=== PATIENT | female | born 1970 | race Two or more races ===

== ENCOUNTER 2019-06-13 11:24 | Inpatient (IN) | payer OTHER ==
[~2019-06-13] VITALS: Ht 167.6 cm; Wt 83.0 kg
[2019-06-13 11:52] LABS: CLARITY,URINE SLIGHTLY CLOUDY (Clear); COLOR,URINE YELLOW (Yellow); GLUCOSE, URINE >=1000 mg/dl (Neg); KETONES,URINE 15 mg/dl (Neg); LEUKOCYTE ESTERASE ,URINE NEGATIVE (Neg); NITRITES, URINE NEGATIVE (Neg); OCCULT BLOOD,URINE NEGATIVE (Neg); PH,URINE 5.5 (4.8-8.0); PROTEIN,URINE NEGATIVE (Neg); UROBILINOGEN,URINE 0.2 E.U/dL (0.2-1.0)
[2019-06-13 11:56] LABS: UA COLLECTION TYPE CLN CATCH MIDSTREAM
[2019-06-13 12:03] LABS: SQUAMOUS EPITHELIAL CELL,UR MODERATE /LPF (FEW)
[2019-06-13 12:04] LABS: BACTERIA,URINE FEW /HPF (Neg)
[2019-06-13 12:05] LABS: RBC,URINE 0-2 /HPF (0-2); WBC,URINE 0-4 /HPF (0-4)
[2019-06-13 12:06] LABS: YEAST FEW /HPF (NEGATIVE)
[2019-06-13] MEDS ORDERED: morphine 4 MG/ML inj SYRINge IV ONE ×2 (12:25→14:15)
[2019-06-13] MEDS ORDERED: normal saline 1000ml 1,000 ML IV ONE ×3 (12:25→14:20)
[2019-06-13] MEDS ORDERED: ondansetron/PF 4mg/2ml inj IV ONE (12:25)
[2019-06-13 12:32] LABS: BASOPHILS % (AUTO) 0.3 % (0-1); EOSINOPHILS % (AUTO) 0.1 % (0-6); HEMATOCRIT 39.6 % (35.0-45.0); HEMOGLOBIN 13.2 g/dl (12.0-16.0); LYMPHOCYTES # (AUTO) 1.7 X10'3 (1.1-4.8); MEAN CORPUSCULAR HGB CONC 33.4 g/dL (33.0-36.5); MEAN CORPUSCULAR VOLUME 80.8 FL (78-98); MEAN PLATELET VOLUME 7.9 FL (7.4-10.4); MONOCYTES # (AUTO) 0.6 X10'3 (0-0.9); MONOCYTES % (AUTO) 4.6 % (2-12); NEUTROPHILS # (AUTO) 10.6 X10'3 (1.8-7.7); PLATELET COUNT 254 X10'3 (140-440); RED CELL DISTRIBUTION WIDTH 14.2 % (11.5-14.5); WHITE BLOOD COUNT 12.9 X10'3 (4.5-11.0)
--- NOTE | 2019-06-13 12:44 | NUR ---
PT TO CT
[2019-06-13 12:47] LABS: ALANINE AMINOTRANSFERASE 40 U/L (12-78); ALBUMIN 3.8 G/DL (3.4-5.0); ALBUMIN/GLOBULIN RATIO 0.9 (1.1-1.5); ALKALINE PHOSPHATASE 143 IU/L (46-116); ANION GAP 11 (8-16); ASPARTATE AMINO TRANSFERASE 22 U/L (10-37); BILIRUBIN,TOTAL 0.5 MG/DL (0.1-1.0); BLOOD UREA NITROGEN 8 MG/DL (7-18); BUN/CREATININE RATIO 12.7 (6.6-38.0); CALCIUM 8.9 MG/DL (8.5-10.1); CHLORIDE 99 MMOL/L (99-107); CREATININE 0.63 MG/DL (0.40-0.90); GLUCOSE 383 MG/DL (70-104); LIPASE 171 U/L (73-393); SODIUM 135 MMOL/L (135-145); TOTAL CARBON DIOXIDE 24.8 MMOL/L (24-32); eGFR > 90 ML/MIN
[2019-06-13] MEDS ORDERED: insulin regular, human 10 units/0.1 ml syringe IV ONE (12:50)
[2019-06-13 13:48] LABS: URINE AMPHETAMINE SCREEN NEGATIVE (Neg); URINE BARBITUATE SCREEN NEGATIVE (Neg); URINE BENZODIAZEPINES SCREEN NEGATIVE (Neg); URINE CANNABINOID SCREEN NEGATIVE (Neg); URINE COCAINE SCREEN NEGATIVE (Neg); URINE METHADONE SCREEN NEGATIVE (Neg); URINE OPIATE SCREEN NEGATIVE (Neg); URINE PHENCYCLIDINE SCREEN NEGATIVE (Neg)
[2019-06-13] MEDS ORDERED: piperacillin/tazo 4.5gm/100ml 100 ML IV ONE (13:50)
--- NOTE | 2019-06-13 14:02 | NUR ---
BG 228
[2019-06-13] MEDS ORDERED: HYDROcodone/acetaminophen 5mg/325mg tablet PO ONE (14:20)
[2019-06-13] MEDS ORDERED: INSU100I31 SQ (14:26)
[2019-06-13] MEDS ORDERED: METF-436 PO (14:26)
[2019-06-13] MEDS ORDERED: LISI-604 PO (14:26)
[2019-06-13] MEDS ORDERED: diphenhydrAMINE 25mg capsule PO PRN (14:40)
[2019-06-13] MEDS ORDERED: magnesium hydroxide 30ml (MOM) UD suspension PO PRN (14:40)
[2019-06-13] MEDS ORDERED: metoclopramide 5 mg/ml inj IV PRN (14:40)
[2019-06-13] MEDS ORDERED: dextrose 50%-water 50ml dispensing syringe IV PRN ×2 (14:40)
[2019-06-13] MEDS ORDERED: glucagon, human recombinant 1mg kit SUBCUT PRN (14:40)
[2019-06-13] MEDS ORDERED: diphenhydrAMINE 50 mg/ml inj IV PRN (14:40)
[2019-06-13] MEDS ORDERED: HYDROcodone/acetaminophen 10/325mg tab PO PRN (14:40)
[2019-06-13] MEDS ORDERED: mag hydrox/Alum hydrox/simeth 30ml oral suspension PO PRN (14:40)
[2019-06-13] MEDS ORDERED: magnesium Cl slow-release 64mg tablet PO PRN (14:40)
[2019-06-13] MEDS ORDERED: acetaminophen 325mg tablet PO PRN (14:40)
[2019-06-13] MEDS: K and/or MAG REPLACEMENT MC SCH (14:40)
[2019-06-13] MEDS ORDERED: acetaminophen 650mg rectal suppository RC PRN (14:40)
[2019-06-13] MEDS ORDERED: potassium Cl 20 mEq SR tablet PO PRN (14:40)
[2019-06-13] MEDS: normal saline 1000ml 1,000 ML IV SCH (14:40)
[2019-06-13] MEDS ORDERED: morphine 2 MG/ML inj. syringe IV PRN ×2 (14:40)
[2019-06-13] MEDS ORDERED: potassium CL 10mEq/100ml bag 100 ML IV PRN ×2 (14:40)
[2019-06-13] MEDS ORDERED: MESSAGE TO PHARMACY PO ONE (14:40)
[2019-06-13] MEDS ORDERED: magnesium 4gm in 100ml NS 100 ML IV PRN (14:40)
[2019-06-13] MEDS ORDERED: magnesium 2GM in 50ml NS 50 ML IV PRN (14:40)
[2019-06-13] MEDS ORDERED: dextrose ORAL solution 15 GM/59 ML bottle PO PRN ×2 (14:40)
[2019-06-13] MEDS ORDERED: bisacodyl 10mg suppository rectal RC PRN (14:40)
[2019-06-13] MEDS ORDERED: METF500T20 PO (14:44)
[2019-06-13] MEDS ORDERED: ATOR20TA66 PO (14:48)
[2019-06-13 15:07] LABS: HEMOGLOBIN A1C 11.5 % (4.5-6.2)
--- NOTE | 2019-06-13 15:24 | NUR ---
Patient in room ED 7. I have received report from VELASQUEZ Maher and had the opportunity to ask questions and assume patient care.
--- NOTE | 2019-06-13 15:50 | NUR ---
Pt arrived on surgical floor and settled in room 350B, at bedside. Bed low and locked, call light within reach.
[2019-06-13 15:56] VITALS: BP 114/73
[2019-06-13] MEDS ORDERED: piperacillin/tazo 3.375gm/50ml 50 ML IV SCH (16:00)
--- NOTE | 2019-06-13 16:09 | NUR ---
Pt has temp of 102.1. Dr Lira notified, no new orders received at this time. Will administer Tylenol and continue to monitor.
--- NOTE | 2019-06-13 16:40 | NUR ---
2 [place] 10/325's administered per orders. Will reassess temp in 1 hour.
--- NOTE | 2019-06-13 17:40 | NUR ---
Temp 98.7
[2019-06-13 18:00] VITALS: BP 147/80
--- NOTE | 2019-06-13 18:14 | NUR ---
Problems reprioritized. Patient report given, questions answered & plan of care reviewed with VELASQUEZ Bedoya.
[2019-06-13] MEDS: insulin Lispro (HumaLOG) vial - multi-dose SQ SCH (19:03)
[2019-06-13] MEDS: insulin glargine (Lantus) pen - multi-dose SQ SCH (21:00)
[2019-06-13] MEDS ORDERED: temazepam 15mg capsule PO PRN (21:00)
[2019-06-13] MEDS: heparin, porcine 5000 units/ml vial SQ SCH (21:59)
[2019-06-13] MEDS: diatr meglu/diatrizoate 30ml oral sol.-(3 dose) bottle PO SCH (22:02)
[2019-06-14] VITALS (15 sets, daily range): BP systolic 105–135; BP diastolic 51–77
[2019-06-14] MEDS: piperacillin/tazo 3.375gm/50ml 50 ML IV SCH ×4 (00:12→23:20)
[2019-06-14] MEDS: HYDROcodone/acetaminophen 5mg/325mg tablet PO PRN ×2 (00:25→07:38)
[2019-06-14] MEDS: normal saline 1000ml 1,000 ML IV SCH ×3 (00:40→22:00)
[2019-06-14] MEDS: ondansetron/PF 4mg/2ml inj IV PRN ×2 (01:25→22:10)
[2019-06-14 05:27] LABS: BASOPHILS % (AUTO) 0.1 % (0-1); EOSINOPHILS % (AUTO) 0.1 % (0-6); HEMATOCRIT 33.9 % (35.0-45.0); HEMOGLOBIN 11.1 g/dl (12.0-16.0); LYMPHOCYTES # (AUTO) 1.6 X10'3 (1.1-4.8); LYMPHOCYTES % (AUTO) 11.5 % (21-51); MEAN CORPUSCULAR HEMOGLOBIN 26.9 PG (27.0-31.0); MEAN CORPUSCULAR HGB CONC 32.8 g/dL (33.0-36.5); MEAN PLATELET VOLUME 8.2 FL (7.4-10.4); MONOCYTES # (AUTO) 0.7 X10'3 (0-0.9); MONOCYTES % (AUTO) 5.1 % (2-12); NEUTROPHILS # (AUTO) 11.5 X10'3 (1.8-7.7); NEUTROPHILS % (AUTO) 83.2 % (42-75); PLATELET COUNT 204 X10'3 (140-440); RED BLOOD COUNT 4.14 X10'6 (4.20-5.60); RED CELL DISTRIBUTION WIDTH 14.5 % (11.5-14.5); WHITE BLOOD COUNT 13.8 X10'3 (4.5-11.0)
[2019-06-14 05:40] LABS: ALANINE AMINOTRANSFERASE 28 U/L (12-78); ALBUMIN 2.7 G/DL (3.4-5.0); ALBUMIN/GLOBULIN RATIO 0.7 (1.1-1.5); ALKALINE PHOSPHATASE 91 IU/L (46-116); ANION GAP 10 (8-16); ASPARTATE AMINO TRANSFERASE 15 U/L (10-37); BILIRUBIN,TOTAL 0.8 MG/DL (0.1-1.0); BLOOD UREA NITROGEN 6 MG/DL (7-18); BUN/CREATININE RATIO 10.9 (6.6-38.0); CHLORIDE 102 MMOL/L (99-107); CREATININE 0.55 MG/DL (0.40-0.90); GLUCOSE 273 MG/DL (70-104); MAGNESIUM 1.4 MG/DL (1.5-2.4); PHOSPHORUS 2.6 MG/DL (2.3-4.5); POTASSIUM 3.6 MMOL/L (3.5-5.1); SODIUM 135 MMOL/L (135-145); TOTAL CARBON DIOXIDE 23.3 MMOL/L (24-32); TOTAL PROTEIN 6.4 G/DL (6.4-8.2); eGFR > 90 ML/MIN
--- NOTE | 2019-06-14 06:31 | NUR ---
report given to VELASQUEZ Jimenez
[2019-06-14] MEDS: diatr meglu/diatrizoate 30ml oral sol.-(3 dose) bottle PO SCH ×2 (07:37→09:15)
[2019-06-14] MEDS: atorvastatin 20mg tablet PO SCH (07:39)
[2019-06-14] MEDS: K and/or MAG REPLACEMENT MC SCH (08:00)
[2019-06-14] MEDS: heparin, porcine 5000 units/ml vial SQ SCH ×2 (08:00→20:03)
[2019-06-14] MEDS ORDERED: BUPIVAcaine/PF 2.5 mg/ml (0.25%) 30ml vial ONE ×2 (09:13→14:53)
[2019-06-14] MEDS ORDERED: LIDOcaine 1% 30ml preserv. free vial ONE ×2 (09:13→14:53)
[2019-06-14] MEDS ORDERED: iohexol 300mg/ml 100ml inj. ONE (09:23)
[2019-06-14] MEDS ORDERED: pneumococcal 23-VAL P-sac vacc 25 mcg/0.5ml vial IMVAC ONE (10:00)
[2019-06-14] MEDS ORDERED: morphine 4 MG/ML inj SYRINge IV PRN ×2 (11:25)
[2019-06-14] MEDS ORDERED: ondansetron/PF 4mg/2ml inj IV PRN (11:25)
[2019-06-14] MEDS ORDERED: proCHLORperazine 10 MG/2 ml inj IV PRN (11:25)
[2019-06-14] MEDS ORDERED: ringers solution, lacted 1,000 ML IV SCH (11:25)
[2019-06-14] MEDS ORDERED: meperidine/PF 25mg/ml syringe IV PRN ×3 (11:25)
--- NOTE | 2019-06-14 13:23 | NUR ---
Pt with A1c 11.5 seen at bedside with family present. Pt with conflicting information, states she follows a DM diet by monitoring her CHO intake but then states she doesn't follow any diet. Pt then reports doing the Keto diet previously which she stopped in February. 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 No past A1c lab draws to confirm A1c hx. Pt reports she will periodically check her BG levels however she sometimes has a CGM but she hasn't been using it because it doesn't last the full two weeks that it's supposed to. Pt initially reports that she takes her Metformin per rx but then says that she doesn't always take it because it causes her to have diarrhea. D/w MD pt reports of adverse reactions to Metformin. Pt reports she sees an MD q 6 months at [facility]. Pt provided with written and verbal DM education with referral to outpatient DM class and RD contact information. RD encouraged pt to consider having consistent CHO intake in moderation and to check her BG levels more frequently to better manage DM. RD also encouraged pt to further express her concerns with Metformin and CGM with her MD in order to optimize DM management. Pt endorses a good appetite and denies food allergies or difficulty chewing/swallowing. Pt reports diarrhea secondary to medications at this time. Will continue to follow. Addendum: 06/14/19 at [address] Amended: Links added.
--- NOTE | 2019-06-14 14:05 | NUR ---
GAVE REPORT TO SUZE IN OR
[2019-06-14] MEDS ORDERED: sevoflurane 250ml liquid IH ONE (15:19)
[2019-06-14] MEDS ORDERED: rocuronium 10mg/ml inj IV ONE (15:19)
[2019-06-14] MEDS ORDERED: fentaNYL/PF 50MCG/1 ML 2ML syringe ONE (15:23)
[2019-06-14] MEDS ORDERED: midazolam 2 mg/2 ml injection ONE (15:23)
[2019-06-14] MEDS ORDERED: LIDOcaine 1%/PF 5ML 10 MG/ML VIAL ONE (15:24)
[2019-06-14] MEDS ORDERED: propofol inj 20 ML IV ONE (15:24)
[2019-06-14] MEDS ORDERED: dexamethasone sod phosphate 4mg/ml inj. ONE (15:35)
[2019-06-14] MEDS ORDERED: ondansetron/PF 4mg/2ml inj ONE (15:36)
[2019-06-14] MEDS ORDERED: acetaminophen 1,000mg/100ml IV 100 ML IV ONE (16:21)
[2019-06-14] MEDS ORDERED: neostigmine methylsulfate 1 MG/ML 10ml vial ONE (16:34)
[2019-06-14] MEDS ORDERED: glycopyrrolate 0.2mg/ml inj ONE (16:34)
[2019-06-14] MEDS ORDERED: CADD PCA waste documentation MC PRN (16:40)
[2019-06-14] MEDS ORDERED: naloxone 0.4 mg/ml inj IV PRN (16:40)
[2019-06-14] MEDS ORDERED: HYDROmorphone/NS 1 mg/ml CADD 50 ML IV SCH (16:40)
[2019-06-14] MEDS ORDERED: insulin regular, human 10 units/0.1 ml syringe ONE (16:48)
--- NOTE | 2019-06-14 16:50 | NUR ---
Received from OR via BED, accompanied by Anesthesiologist GREG and report given by Anesthesiolgist. PT SLEEPY, OXYGENATING WELL ON 10 LPM O2 VIA MASK, NO RESP DISTRESS NOTED. DENIES NAUSEA OR PAIN AT THIS TIME. LARGE BANDAIDS COVERING TROCAR SITES, CDI. JOSE DRAIN TO LOWER ABD WITH DARK OUTPUT. SCDS ON, VSS.
--- NOTE | 2019-06-14 17:00 | NUR ---
GOT REPRY Addendum: 06/14/19 at 1932 by Barbara Pierson RN GOT REPORT FROM GABRIELLA IN RECOVERY
--- NOTE | 2019-06-14 17:25 | NUR ---
Report called to receiving nurse. Transferred via BED Belongings IN PT ROOM. VSS, PT DENIES PAIN DURING PACU STAY. TRANSFERRED TO SURGICAL IN STABLE CONDITION. Special Issues communicated to receiving nurse.
[2019-06-14] MEDS: HYDROmorphone/NS 1 mg/ml CADD 50 ML IV SCH ×3 (18:37→23:00)
--- NOTE | 2019-06-14 18:45 | NUR ---
SHIFT CHANGE REPORT Problems reprioritized. Patient report given, questions answered & plan of care reviewed with VELASQUEZ WORTHY.
[2019-06-14] MEDS: lactobacillus rhamnosus 10,000 MMU CELLS/CAPSULE PO SCH (20:02)
--- NOTE | 2019-06-14 22:00 | NUR ---
PT AMBULATED 300'
[2019-06-14] MEDS: insulin glargine (Lantus) pen - multi-dose SQ SCH (23:17)
[2019-06-15] VITALS: BP 109/51
[2019-06-15] MEDS: HYDROmorphone/NS 1 mg/ml CADD 50 ML IV SCH ×6 (01:00→11:00)
--- NOTE | 2019-06-15 04:59 | NUR ---
PT AMBULATED 600'
--- NOTE | 2019-06-15 06:11 | NUR ---
SHIFT CHANGE NOTE: Patient in room [facility] 350. I have received report from VELASQUEZ WORTHY and had the opportunity to ask questions and assume patient care.
--- NOTE | 2019-06-15 06:22 | NUR ---
report given to VELASQUEZ Jimenez
[2019-06-15 06:32] LABS: BASOPHILS % (AUTO) 0.2 % (0-1); EOSINOPHILS % (AUTO) 0 % (0-6); HEMATOCRIT 33.9 % (35.0-45.0); LYMPHOCYTES # (AUTO) 1.1 X10'3 (1.1-4.8); LYMPHOCYTES % (AUTO) 7.4 % (21-51); MEAN CORPUSCULAR HEMOGLOBIN 26.6 PG (27.0-31.0); MEAN CORPUSCULAR HGB CONC 32.5 g/dL (33.0-36.5); MEAN PLATELET VOLUME 8.8 FL (7.4-10.4); MONOCYTES # (AUTO) 0.7 X10'3 (0-0.9); MONOCYTES % (AUTO) 4.6 % (2-12); NEUTROPHILS # (AUTO) 12.8 X10'3 (1.8-7.7); NEUTROPHILS % (AUTO) 87.8 % (42-75); PLATELET COUNT 212 X10'3 (140-440); RED BLOOD COUNT 4.14 X10'6 (4.20-5.60); RED CELL DISTRIBUTION WIDTH 14.9 % (11.5-14.5); WHITE BLOOD COUNT 14.5 X10'3 (4.5-11.0)
[2019-06-15 06:34] LABS: ALANINE AMINOTRANSFERASE 29 U/L (12-78); ALBUMIN 2.3 G/DL (3.4-5.0); ALBUMIN/GLOBULIN RATIO 0.5 (1.1-1.5); ALKALINE PHOSPHATASE 97 IU/L (46-116); ANION GAP 16 (8-16); ASPARTATE AMINO TRANSFERASE 22 U/L (10-37); BILIRUBIN,TOTAL 0.5 MG/DL (0.1-1.0); BLOOD UREA NITROGEN 9 MG/DL (7-18); CALCIUM 8.6 MG/DL (8.5-10.1); CHLORIDE 102 MMOL/L (99-107); CREATININE 0.53 MG/DL (0.40-0.90); GLUCOSE 259 MG/DL (70-104); MAGNESIUM 1.5 MG/DL (1.5-2.4); POTASSIUM 3.3 MMOL/L (3.5-5.1); SODIUM 136 MMOL/L (135-145); TOTAL CARBON DIOXIDE 17.7 MMOL/L (24-32); TOTAL PROTEIN 6.6 G/DL (6.4-8.2); eGFR > 90 ML/MIN
[2019-06-15 07:13] VITALS: BP 140/85
[2019-06-15] MEDS: normal saline 1000ml 1,000 ML IV SCH ×2 (07:14→16:31)
[2019-06-15] MEDS: atorvastatin 20mg tablet PO SCH (07:36)
[2019-06-15] MEDS: potassium Cl 20 mEq SR tablet PO PRN ×3 (07:36→16:27)
[2019-06-15] MEDS: heparin, porcine 5000 units/ml vial SQ SCH ×2 (07:36→19:37)
[2019-06-15] MEDS: lactobacillus rhamnosus 10,000 MMU CELLS/CAPSULE PO SCH ×2 (07:36→19:37)
[2019-06-15] MEDS: piperacillin/tazo 3.375gm/50ml 50 ML IV SCH ×2 (07:46→16:27)
[2019-06-15] MEDS: K and/or MAG REPLACEMENT MC SCH (08:00)
--- NOTE | 2019-06-15 09:18 | NUR ---
PAGER ID: [phone] MESSAGE: Louise DonatoB : patient would like her Dilaudid PENELOPE villafana'd so she can take po pain medication. Also, phos level is 2.0, would you like replacement orders? thank you - brit [phone] Addendum: 06/15/19 at 1303 by Brit Mai RN Hospitalist PENELOPE koo, she stated no need for phos replacement orders.
[2019-06-15] MEDS: insulin Lispro (HumaLOG) vial - multi-dose SQ SCH ×3 (10:07→18:45)
[2019-06-15 11:00] VITALS: BP 130/68
[2019-06-15] MEDS ORDERED: pneumococcal 23-VAL P-sac vacc 25 mcg/0.5ml vial IMVAC ONE (12:05)
[2019-06-15] MEDS: acetaminophen 325mg tablet PO PRN ×2 (15:15→22:37)
--- NOTE | 2019-06-15 16:21 | NUR ---
F/u: Pt/SO seen by RD for verbal DM ed reinforcement focusing on carb counting, portion sizing, snack options, hydration, checking GLU routinely, and attending CDE course. RD contact information w/ DM ed present at bedside. RD encouraged pt/SO to contact RD if further questions/concerns. Addendum: 06/15/19 at [address] Amended: Links added.
[2019-06-15 18:00] VITALS: BP 113/69
--- NOTE | 2019-06-15 18:15 | NUR ---
SHIFT CHANGE NOTE Problems reprioritized. Patient report given, questions answered & plan of care reviewed with VELASQUEZ WORTHY.
--- NOTE | 2019-06-15 18:51 | NUR ---
report received from VELASQUEZ Jimenez
[2019-06-15] MEDS: insulin glargine (Lantus) pen - multi-dose SQ SCH (20:41)
[2019-06-16] VITALS: BP 124/66
[2019-06-16] MEDS: piperacillin/tazo 3.375gm/50ml 50 ML IV SCH ×4 (00:25→23:58)
[2019-06-16] MEDS: normal saline 1000ml 1,000 ML IV SCH ×2 (02:40→11:29)
[2019-06-16 05:16] LABS: BASOPHILS # (AUTO) 0.1 X10'3 (0-0.2); BASOPHILS % (AUTO) 0.5 % (0-1); EOSINOPHILS % (AUTO) 0.4 % (0-6); HEMOGLOBIN 10.2 g/dl (12.0-16.0); LYMPHOCYTES # (AUTO) 1.6 X10'3 (1.1-4.8); MEAN CORPUSCULAR HEMOGLOBIN 26.7 PG (27.0-31.0); MEAN CORPUSCULAR HGB CONC 32.8 g/dL (33.0-36.5); MEAN CORPUSCULAR VOLUME 81.5 FL (78-98); MEAN PLATELET VOLUME 8.2 FL (7.4-10.4); MONOCYTES # (AUTO) 0.7 X10'3 (0-0.9); MONOCYTES % (AUTO) 6.2 % (2-12); NEUTROPHILS # (AUTO) 9.5 X10'3 (1.8-7.7); NEUTROPHILS % (AUTO) 79.9 % (42-75); PLATELET COUNT 235 X10'3 (140-440); RED CELL DISTRIBUTION WIDTH 14.8 % (11.5-14.5); WHITE BLOOD COUNT 11.9 X10'3 (4.5-11.0)
[2019-06-16 05:42] LABS: ALANINE AMINOTRANSFERASE 21 U/L (12-78); ALBUMIN/GLOBULIN RATIO 0.5 (1.1-1.5); ALKALINE PHOSPHATASE 88 IU/L (46-116); ANION GAP 13 (8-16); ASPARTATE AMINO TRANSFERASE 15 U/L (10-37); BILIRUBIN,TOTAL 0.4 MG/DL (0.1-1.0); BLOOD UREA NITROGEN 8 MG/DL (7-18); BUN/CREATININE RATIO 18.6 (6.6-38.0); CALCIUM 8.1 MG/DL (8.5-10.1); CHLORIDE 106 MMOL/L (99-107); CREATININE 0.43 MG/DL (0.40-0.90); GLUCOSE 202 MG/DL (70-104); MAGNESIUM 1.4 MG/DL (1.5-2.4); PHOSPHORUS 1.4 MG/DL (2.3-4.5); POTASSIUM 3.1 MMOL/L (3.5-5.1); SODIUM 140 MMOL/L (135-145); TOTAL CARBON DIOXIDE 21.5 MMOL/L (24-32); eGFR > 90 ML/MIN
--- NOTE | 2019-06-16 06:15 | NUR ---
Patient in room [facility] 350. I have received report from VELASQUEZ Bedoya and had the opportunity to ask questions and assume patient care.
--- NOTE | 2019-06-16 06:15 | NUR ---
Report given to VELASQUEZ Garcia
[2019-06-16] MEDS: K and/or MAG REPLACEMENT MC SCH (06:56)
[2019-06-16 07:00] VITALS: BP 125/76
[2019-06-16] MEDS: atorvastatin 20mg tablet PO SCH (08:12)
[2019-06-16] MEDS: potassium Cl 20 mEq SR tablet PO PRN ×3 (08:12→16:07)
[2019-06-16] MEDS: lactobacillus rhamnosus 10,000 MMU CELLS/CAPSULE PO SCH ×2 (08:12→19:53)
[2019-06-16] MEDS: acetaminophen 325mg tablet PO PRN ×2 (08:13→19:53)
[2019-06-16] MEDS: heparin, porcine 5000 units/ml vial SQ SCH ×2 (08:17→19:56)
[2019-06-16] MEDS: insulin Lispro (HumaLOG) vial - multi-dose SQ SCH ×3 (09:32→19:11)
[2019-06-16] MEDS ORDERED: pneumococcal 23-VAL P-sac vacc 25 mcg/0.5ml vial IMVAC ONE (10:00)
[2019-06-16 11:00] VITALS: BP 133/78
[2019-06-16] MEDS: HYDROcodone/acetaminophen 5mg/325mg tablet PO PRN ×2 (13:45→23:12)
[2019-06-16] MEDS: Neutra Phos packet PO SCH ×2 (13:45→19:54)
[2019-06-16] MEDS ORDERED: potassium Cl 20 mEq SR tablet PO PRN (15:55)
[2019-06-16] MEDS ORDERED: magnesium 4gm in 100ml NS 100 ML IV PRN (15:55)
[2019-06-16] MEDS ORDERED: magnesium Cl slow-release 64mg tablet PO PRN (15:55)
[2019-06-16] MEDS ORDERED: potassium CL 10mEq/100ml bag 100 ML IV PRN (15:55)
--- NOTE | 2019-06-16 18:20 | NUR ---
Patient in room [facility] 350. I have received report from VELASQUEZ Garcia and had the opportunity to ask questions and assume patient care. Pt sitting up in bed eating full liq dinner. Pt states feeling full, denies pain at this time. Addendum: 06/16/19 at 1937 by Patrick Lopez RN Amended: Links added.
--- NOTE | 2019-06-16 18:20 | NUR ---
Problems reprioritized. Patient report given, questions answered & plan of care reviewed with VELASQUEZ Bhardwaj.
[2019-06-16 19:46] VITALS: BP 146/79
[2019-06-16] MEDS: insulin glargine (Lantus) pen - multi-dose SQ SCH (21:56)
[2019-06-17 00:06] VITALS: BP 124/74
[2019-06-17] MEDS: HYDROcodone/acetaminophen 5mg/325mg tablet PO PRN ×2 (04:43→12:14)
[2019-06-17 05:01] LABS: BASOPHILS # (AUTO) 0.1 X10'3 (0-0.2); BASOPHILS % (AUTO) 0.9 % (0-1); EOSINOPHILS # (AUTO) 0.2 X10'3 (0-0.9); HEMATOCRIT 32.3 % (35.0-45.0); HEMOGLOBIN 10.8 g/dl (12.0-16.0); LYMPHOCYTES # (AUTO) 1.6 X10'3 (1.1-4.8); LYMPHOCYTES % (AUTO) 17.3 % (21-51); MEAN CORPUSCULAR HEMOGLOBIN 26.7 PG (27.0-31.0); MEAN CORPUSCULAR HGB CONC 33.4 g/dL (33.0-36.5); MEAN PLATELET VOLUME 7.9 FL (7.4-10.4); MONOCYTES % (AUTO) 10.8 % (2-12); NEUTROPHILS # (AUTO) 6.6 X10'3 (1.8-7.7); PLATELET COUNT 275 X10'3 (140-440); RED BLOOD COUNT 4.03 X10'6 (4.20-5.60); RED CELL DISTRIBUTION WIDTH 15.1 % (11.5-14.5); WHITE BLOOD COUNT 9.5 X10'3 (4.5-11.0)
[2019-06-17 05:36] LABS: ALANINE AMINOTRANSFERASE 20 U/L (12-78); ALBUMIN 2.1 G/DL (3.4-5.0); ALBUMIN/GLOBULIN RATIO 0.5 (1.1-1.5); ALKALINE PHOSPHATASE 99 IU/L (46-116); ANION GAP 9 (8-16); ASPARTATE AMINO TRANSFERASE 15 U/L (10-37); BILIRUBIN,TOTAL 0.4 MG/DL (0.1-1.0); BLOOD UREA NITROGEN 5 MG/DL (7-18); BUN/CREATININE RATIO 11.4 (6.6-38.0); CALCIUM 8.3 MG/DL (8.5-10.1); CHLORIDE 105 MMOL/L (99-107); CREATININE 0.44 MG/DL (0.40-0.90); GLUCOSE 175 MG/DL (70-104); MAGNESIUM 1.5 MG/DL (1.5-2.4); PHOSPHORUS 3.8 MG/DL (2.3-4.5); POTASSIUM 3.1 MMOL/L (3.5-5.1); SODIUM 140 MMOL/L (135-145); TOTAL CARBON DIOXIDE 25.9 MMOL/L (24-32); TOTAL PROTEIN 6.4 G/DL (6.4-8.2); eGFR > 90 ML/MIN
--- NOTE | 2019-06-17 06:18 | NUR ---
Problems reprioritized. Patient report given, questions answered & plan of care reviewed with VELASQUEZ REDDY. Addendum: 06/17/19 at 0618 by Patrick Lopez RN Amended: Links added.
[2019-06-17 07:00] VITALS: BP 107/67
[2019-06-17] MEDS: K and/or MAG REPLACEMENT MC SCH (08:00)
[2019-06-17] MEDS: piperacillin/tazo 3.375gm/50ml 50 ML IV SCH (08:57)
[2019-06-17] MEDS: lactobacillus rhamnosus 10,000 MMU CELLS/CAPSULE PO SCH (08:59)
[2019-06-17] MEDS: atorvastatin 20mg tablet PO SCH (08:59)
[2019-06-17] MEDS: Neutra Phos packet PO SCH (08:59)
[2019-06-17] MEDS: heparin, porcine 5000 units/ml vial SQ SCH (09:00)
[2019-06-17] MEDS: potassium Cl 20 mEq SR tablet PO PRN (09:02)
[2019-06-17] MEDS: insulin Lispro (HumaLOG) vial - multi-dose SQ SCH (09:09)
--- NOTE | 2019-06-17 09:56 | NUR ---
Initial: Pt admit with ruptured appendicitis and intraabdominal infection. Pt now s/p laparoscopic appendectomy for ruptured appendicitis and peritoneal abscess. Pt previously tolerating liquid diet. PO diet has just been advanced to CHO controlled, pending first meal since advancement. LBM 06/16. No nutrition diagnosis at this time. Will continue to follow. Recommendations: 1) Continue with CHO controlled diet 2) Monitor need for ONS/additional protein 3) Bowel care 4) Wt per rx Addendum: 06/17/19 at [address] Amended: Links added.
--- NOTE | 2019-06-17 13:47 | NUR ---
DR MORALES ROUNDED. PT NEEDS DRAIN OUT AND WILL BE DC'D TODAY. SCRIPTS SENT FROM HIS OFFICE.
[2019-06-17] MEDS ORDERED: simethicone 80mg chew tab PO ONE (13:50)
[2019-06-17] MEDS ORDERED: AMOX-580 PO (13:53)
[2019-06-17] MEDS ORDERED: OXYC-145 PO (13:53)
--- NOTE | 2019-06-17 14:13 | NUR ---
Blood sugar not covered for this patient due to patient being discharged and unable to ensure insulin will not drop her sugar.
--- NOTE | 2019-06-17 14:46 | NUR ---
Patient discharged home via spouse and taken from unit via wheelchair with x1 staff. Patient PIV removed with cannula intact. Resource nurse also removed the JOSE drain per MD order. Patient tolerated well. Patient was given discharge instructions and was given time for questions and answers. Patient stated an understanding of all. 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 Nye's office today.
[2019-06-18] MEDS ORDERED: pneumococcal 23-VAL P-sac vacc 25 mcg/0.5ml vial IMVAC ONE (10:00)
== END 2019-06-17 14:45 | disposition home or self-care (01) | DRG 853 ==
LOC: ER 11:25 → ED HOLD 14:56 → EDBEDREQ 15:04 → SUR 3N 15:42
PROVIDERS: ADMIT Family Medicine; ATTEND Surgery
PROC: BW211ZZ Computerized Tomography (CT Scan) of Abdomen and Pelvis using Low Osmolar Contrast (ICD-10-PCS; 2019-06-14)
PROC: 0DTJ4ZZ Resection of Appendix, Percutaneous Endoscopic Approach (ICD-10-PCS; principal; 2019-06-14 15:19)
DX: A41.9 Sepsis, unspecified organism (principal); K35.33 Acute appendicitis with perforation, localized peritonitis, and gangrene, with abscess; E87.2 Acidosis; E11.65 Type 2 diabetes mellitus with hyperglycemia; I10 Essential (primary) hypertension; E78.5 Hyperlipidemia, unspecified; E87.6 Hypokalemia; Z79.4 Long term (current) use of insulin; Z83.3 Family history of diabetes mellitus; Z87.442 Personal history of urinary calculi; Z98.51 Tubal ligation status; Z79.899 Other long term (current) drug therapy
CPT/HCPCS: Z7506; Z7508; 36415; 74176; 74177; 80053; 80305; 81001; 82948; 83036; 83605; 83690; 83735; 84100; 84145; 85025; 86885; 86900; 86901; 87040; 87081; 90732; A4215; A4618; A7000; G0378; J0131; J1100; J1170; J1644; J1815; J2001; J2250; J2270; J2405; J2543; J2704; J2710; J3010; J3490; J7030; J7120; Q9963; Q9967

== ENCOUNTER 2019-07-04 10:10 | Inpatient (IN) | payer MEDICAID, OTHER ==
[2019-07-04] VITALS (13 sets, daily range): BP systolic 116–146; BP diastolic 63–79
[~2019-07-04] VITALS: Ht 167.6 cm; Wt 80.0 kg
[~2019-07-04 10:10] MED LIST: ATOR20TA66 PO; INSU100I31 SQ; METF500T20 PO; OXYC-145 PO
[2019-07-04] MEDS: diatr meglu/diatrizoate 30ml oral sol.-(3 dose) bottle PO SCH ×3 (10:25→11:49)
[2019-07-04 11:08] LABS: URINE HCG NEGATIVE (NEG)
[2019-07-04 11:14] LABS: CLARITY,URINE CLOUDY (Clear); COLOR,URINE YELLOW (Yellow); GLUCOSE, URINE >=1000 mg/dl (Neg); KETONES,URINE >=80 mg/dl (Neg); LEUKOCYTE ESTERASE ,URINE NEGATIVE (Neg); NITRITES, URINE NEGATIVE (Neg); OCCULT BLOOD,URINE TRACE-INTACT (Neg); PH,URINE 5.5 (4.8-8.0); PROTEIN,URINE NEGATIVE (Neg); UA COLLECTION TYPE CLN CATCH MIDSTREAM; UROBILINOGEN,URINE 0.2 E.U/dL (0.2-1.0)
[2019-07-04] MEDS ORDERED: iohexol 300mg/ml 100ml inj. ONE (11:15)
[2019-07-04 11:20] LABS: SQUAMOUS EPITHELIAL CELL,UR MANY /LPF (FEW)
[2019-07-04 11:21] LABS: BACTERIA,URINE FEW /HPF (Neg); YEAST MODERATE /HPF (NEGATIVE)
[2019-07-04 11:22] LABS: WBC,URINE 0-4 /HPF (0-4)
[2019-07-04 11:24] LABS: BASOPHILS # (AUTO) 0.1 X10'3 (0-0.2); BASOPHILS % (AUTO) 0.7 % (0-1); EOSINOPHILS # (AUTO) 0.1 X10'3 (0-0.9); EOSINOPHILS % (AUTO) 0.7 % (0-6); HEMOGLOBIN 12.4 g/dl (12.0-16.0); LYMPHOCYTES # (AUTO) 2.7 X10'3 (1.1-4.8); LYMPHOCYTES % (AUTO) 22.8 % (21-51); MEAN CORPUSCULAR HEMOGLOBIN 25.8 PG (27.0-31.0); MEAN CORPUSCULAR HGB CONC 32.5 g/dL (33.0-36.5); MEAN CORPUSCULAR VOLUME 79.5 FL (78-98); MEAN PLATELET VOLUME 7.5 FL (7.4-10.4); MONOCYTES % (AUTO) 8.5 % (2-12); NEUTROPHILS # (AUTO) 8.1 X10'3 (1.8-7.7); NEUTROPHILS % (AUTO) 67.3 % (42-75); PLATELET COUNT 387 X10'3 (140-440); RED BLOOD COUNT 4.79 X10'6 (4.20-5.60); RED CELL DISTRIBUTION WIDTH 15.2 % (11.5-14.5)
[2019-07-04 11:40] LABS: ALANINE AMINOTRANSFERASE 30 U/L (12-78); ALBUMIN 3.2 G/DL (3.4-5.0); ALBUMIN/GLOBULIN RATIO 0.7 (1.1-1.5); ALKALINE PHOSPHATASE 143 IU/L (46-116); ANION GAP 12 (8-16); ASPARTATE AMINO TRANSFERASE 14 U/L (10-37); BILIRUBIN,TOTAL 0.6 MG/DL (0.1-1.0); BLOOD UREA NITROGEN 7 MG/DL (7-18); CALCIUM 9.1 MG/DL (8.5-10.1); CHLORIDE 97 MMOL/L (99-107); GLUCOSE 295 MG/DL (70-104); LIPASE 242 U/L (73-393); POTASSIUM 3.8 MMOL/L (3.5-5.1); SODIUM 134 MMOL/L (135-145); TOTAL CARBON DIOXIDE 24.9 MMOL/L (24-32); TOTAL PROTEIN 7.9 G/DL (6.4-8.2); eGFR > 90 ML/MIN
[2019-07-04] MEDS ORDERED: piperacillin/tazo 4.5gm/100ml 100 ML IV SCH (12:30)
[2019-07-04] MEDS ORDERED: piperacillin/tazo 4.5gm/100ml 100 ML IV ONE (12:39)
[2019-07-04] MEDS ORDERED: bisacodyl 10mg suppository rectal RC PRN (12:55)
[2019-07-04] MEDS ORDERED: mag hydrox/Alum hydrox/simeth 30ml oral suspension PO PRN (12:55)
[2019-07-04] MEDS ORDERED: magnesium hydroxide 30ml (MOM) UD suspension PO PRN (12:55)
[2019-07-04] MEDS ORDERED: diphenhydrAMINE 25mg capsule PO PRN (12:55)
[2019-07-04] MEDS ORDERED: HYDROmorphone 1 mg/ml syringe IV PRN (12:55)
[2019-07-04] MEDS ORDERED: magnesium Cl slow-release 64mg tablet PO PRN (12:55)
[2019-07-04] MEDS ORDERED: potassium Cl 20 mEq SR tablet PO PRN (12:55)
[2019-07-04] MEDS ORDERED: magnesium 2GM in 50ml NS 50 ML IV PRN (12:55)
[2019-07-04] MEDS ORDERED: acetaminophen 325mg tablet PO PRN (12:55)
[2019-07-04] MEDS ORDERED: diphenhydrAMINE 50 mg/ml inj IV PRN (12:55)
[2019-07-04] MEDS ORDERED: magnesium 4gm in 100ml NS 100 ML IV PRN (12:55)
[2019-07-04] MEDS ORDERED: metoclopramide 5 mg/ml inj IV PRN (12:55)
[2019-07-04] MEDS ORDERED: acetaminophen 650mg rectal suppository RC PRN (12:55)
[2019-07-04] MEDS ORDERED: HYDROmorphone inj. 0.5 MG/0.5 ML DISP.SYRIN IV PRN (12:55)
[2019-07-04] MEDS ORDERED: potassium CL 10mEq/100ml bag 100 ML IV PRN ×2 (12:55)
[2019-07-04] MEDS: normal saline 1000ml 1,000 ML IV SCH ×2 (13:02→22:52)
[2019-07-04] MEDS ORDERED: normal saline 1000ML IV soln IV ONE (13:15)
--- NOTE | 2019-07-04 13:21 | NUR ---
relieving RN for break, pt is being evaluated by hospitalist
--- NOTE | 2019-07-04 13:55 | NUR ---
Patient arrived to unit room 360 A at this time.
--- NOTE | 2019-07-04 14:00 | NUR ---
Patient arrived to unit room 360-B at this time, VSS.
[2019-07-04] MEDS ORDERED: glucagon, human recombinant 1mg kit SUBCUT PRN (14:05)
[2019-07-04] MEDS ORDERED: MESSAGE TO PHARMACY PO ONE (14:05)
[2019-07-04] MEDS ORDERED: dextrose ORAL solution 15 GM/59 ML bottle PO PRN ×2 (14:05)
[2019-07-04] MEDS ORDERED: dextrose 50%-water 50ml dispensing syringe IV PRN ×2 (14:05)
[2019-07-04 14:17] LABS: PHOSPHORUS 4.3 MG/DL (2.3-4.5)
--- NOTE | 2019-07-04 14:47 | NUR ---
DM consult: Pt with A1c 11.5. Pt previously admitted and seen by RD 06/14 and 06/15 for thorough written and verbal DM education with referral to outpatient DM class and RD contact information. No further DM education warranted at this time. Will continue to follow. Addendum: 07/04/19 at [address] Amended: Links added.
--- NOTE | 2019-07-04 15:10 | NUR ---
IR transported patient down at this time for removal of abscess.
[2019-07-04] MEDS ORDERED: fentaNYL/PF 50MCG/1 ML 2ML syringe ONE (15:38)
--- NOTE | 2019-07-04 15:40 | NUR ---
Consulted with pharmacist re: advised to give next dose of Zosyn at 0000 and to skip 1600 med.
[2019-07-04] MEDS: piperacillin/tazo 3.375gm/50ml 50 ML IV SCH ×2 (15:47→23:11)
--- NOTE | 2019-07-04 16:40 | NUR ---
Patient arrived back from IR with JOSE drain from abscess removal.
--- NOTE | 2019-07-04 18:30 | NUR ---
Patient in room [facility] 360. I have received report from VELASQUEZ Ferris and had the opportunity to ask questions and assume patient care.
--- NOTE | 2019-07-04 18:31 | NUR ---
Problems reprioritized. Patient report given, questions answered & plan of care reviewed with Patria ENG.
[2019-07-04] MEDS: docusate sod 100mg capsule PO SCH (19:40)
[2019-07-04] MEDS: K and/or MAG REPLACEMENT MC SCH (19:40)
[2019-07-04] MEDS: HYDROcodone/acetaminophen 5mg/325mg tablet PO PRN (19:43)
[2019-07-04] MEDS: insulin Lispro (HumaLOG) vial - multi-dose SQ SCH ×2 (20:19→22:10)
[2019-07-04] MEDS ORDERED: temazepam 15mg capsule PO PRN (21:00)
[2019-07-04] MEDS ORDERED: insulin glargine (Lantus) pen - multi-dose SQ ONE (21:00)
[2019-07-04] MEDS: ondansetron/PF 4mg/2ml inj IV PRN (23:01)
[2019-07-05] VITALS: BP 144/77
[2019-07-05] MEDS: HYDROcodone/acetaminophen 10/325mg tab PO PRN ×3 (02:48→14:59)
[2019-07-05] MEDS: ondansetron/PF 4mg/2ml inj IV PRN ×2 (05:21→23:38)
[2019-07-05] MEDS: normal saline 1000ml 1,000 ML IV SCH ×2 (05:28→16:24)
--- NOTE | 2019-07-05 06:26 | NUR ---
Problems reprioritized. Patient report given, questions answered & plan of care reviewed with VELASQUEZ Llamas.
--- NOTE | 2019-07-05 06:27 | NUR ---
Pt stated that Zolfran was minimally effective. If she closes her eyes and rests, she is not as effective.
[2019-07-05 06:39] LABS: BASOPHILS # (AUTO) 0.1 X10'3 (0-0.2); BASOPHILS % (AUTO) 0.7 % (0-1); EOSINOPHILS # (AUTO) 0.1 X10'3 (0-0.9); EOSINOPHILS % (AUTO) 1.1 % (0-6); HEMATOCRIT 34.2 % (35.0-45.0); HEMOGLOBIN 11.5 g/dl (12.0-16.0); LYMPHOCYTES # (AUTO) 2.5 X10'3 (1.1-4.8); LYMPHOCYTES % (AUTO) 23.3 % (21-51); MEAN CORPUSCULAR HEMOGLOBIN 26.5 PG (27.0-31.0); MEAN CORPUSCULAR HGB CONC 33.5 g/dL (33.0-36.5); MEAN CORPUSCULAR VOLUME 79.1 FL (78-98); MEAN PLATELET VOLUME 7.7 FL (7.4-10.4); MONOCYTES # (AUTO) 0.9 X10'3 (0-0.9); MONOCYTES % (AUTO) 8.4 % (2-12); NEUTROPHILS # (AUTO) 7.3 X10'3 (1.8-7.7); NEUTROPHILS % (AUTO) 66.5 % (42-75); PLATELET COUNT 352 X10'3 (140-440); RED BLOOD COUNT 4.32 X10'6 (4.20-5.60); RED CELL DISTRIBUTION WIDTH 15.2 % (11.5-14.5); WHITE BLOOD COUNT 10.9 X10'3 (4.5-11.0)
[2019-07-05 06:52] LABS: ALANINE AMINOTRANSFERASE 23 U/L (12-78); ALBUMIN 2.9 G/DL (3.4-5.0); ALBUMIN/GLOBULIN RATIO 0.7 (1.1-1.5); ALKALINE PHOSPHATASE 131 IU/L (46-116); ANION GAP 11 (8-16); ASPARTATE AMINO TRANSFERASE 11 U/L (10-37); BILIRUBIN,TOTAL 0.6 MG/DL (0.1-1.0); BLOOD UREA NITROGEN 6 MG/DL (7-18); CALCIUM 8.4 MG/DL (8.5-10.1); CHLORIDE 99 MMOL/L (99-107); CREATININE 0.46 MG/DL (0.40-0.90); GLUCOSE 296 MG/DL (70-104); MAGNESIUM 1.5 MG/DL (1.5-2.4); PHOSPHORUS 3.8 MG/DL (2.3-4.5); POTASSIUM 3.6 MMOL/L (3.5-5.1); SODIUM 134 MMOL/L (135-145); TOTAL CARBON DIOXIDE 24.1 MMOL/L (24-32); TOTAL PROTEIN 7.3 G/DL (6.4-8.2); eGFR > 90 ML/MIN
--- NOTE | 2019-07-05 06:55 | NUR ---
Patient in room [facility] 360. I have received report from Patria ENG and had the opportunity to ask questions and assume patient care.
[2019-07-05 07:00] VITALS: BP 139/88
[2019-07-05] MEDS: K and/or MAG REPLACEMENT MC SCH ×2 (08:00→20:00)
[2019-07-05] MEDS: enoxaparin 40mg/0.4ml syringe SUBCUT SCH (08:00)
[2019-07-05] MEDS: piperacillin/tazo 3.375gm/50ml 50 ML IV SCH ×3 (08:38→23:39)
[2019-07-05] MEDS: docusate sod 100mg capsule PO SCH ×2 (08:39→20:00)
[2019-07-05] MEDS: insulin Lispro (HumaLOG) vial - multi-dose SQ SCH ×2 (09:33→18:44)
[2019-07-05 11:00] VITALS: BP 148/84
--- NOTE | 2019-07-05 18:47 | NUR ---
patient c/o pain medicated x2 with effect. Reluctant to get up seen by Dr horn and this staff nurse who encouraged patient to ambulate. patient ambulated 150ft. Obey Draining small amount, purrulent/serrosang. All cares given Report given to Prudence RN
[2019-07-05] MEDS: insulin glargine (Lantus) pen - multi-dose SQ SCH (21:21)
[2019-07-06] VITALS: BP 143/74
[2019-07-06] MEDS: HYDROcodone/acetaminophen 5mg/325mg tablet PO PRN ×4 (00:39→19:01)
[2019-07-06] MEDS: normal saline 1000ml 1,000 ML IV SCH ×3 (00:39→20:48)
[2019-07-06 06:27] LABS: BASOPHILS % (AUTO) 0.5 % (0-1); EOSINOPHILS # (AUTO) 0.2 X10'3 (0-0.9); EOSINOPHILS % (AUTO) 2.1 % (0-6); HEMATOCRIT 33.8 % (35.0-45.0); HEMOGLOBIN 11.3 g/dl (12.0-16.0); LYMPHOCYTES # (AUTO) 2.4 X10'3 (1.1-4.8); LYMPHOCYTES % (AUTO) 32.8 % (21-51); MEAN CORPUSCULAR HEMOGLOBIN 26.3 PG (27.0-31.0); MEAN CORPUSCULAR HGB CONC 33.4 g/dL (33.0-36.5); MEAN CORPUSCULAR VOLUME 78.7 FL (78-98); MEAN PLATELET VOLUME 7.2 FL (7.4-10.4); MONOCYTES # (AUTO) 0.9 X10'3 (0-0.9); MONOCYTES % (AUTO) 12.2 % (2-12); NEUTROPHILS # (AUTO) 3.8 X10'3 (1.8-7.7); NEUTROPHILS % (AUTO) 52.4 % (42-75); PLATELET COUNT 294 X10'3 (140-440); RED BLOOD COUNT 4.29 X10'6 (4.20-5.60); WHITE BLOOD COUNT 7.3 X10'3 (4.5-11.0)
[2019-07-06 06:41] LABS: ALANINE AMINOTRANSFERASE 19 U/L (12-78); ALBUMIN 2.5 G/DL (3.4-5.0); ALBUMIN/GLOBULIN RATIO 0.6 (1.1-1.5); ALKALINE PHOSPHATASE 108 IU/L (46-116); ANION GAP 6 (8-16); ASPARTATE AMINO TRANSFERASE 8 U/L (10-37); BILIRUBIN,TOTAL 0.3 MG/DL (0.1-1.0); BLOOD UREA NITROGEN 2 MG/DL (7-18); BUN/CREATININE RATIO 4.4 (6.6-38.0); CALCIUM 8.3 MG/DL (8.5-10.1); CHLORIDE 102 MMOL/L (99-107); CREATININE 0.45 MG/DL (0.40-0.90); GLUCOSE 220 MG/DL (70-104); MAGNESIUM 1.6 MG/DL (1.5-2.4); PHOSPHORUS 3.7 MG/DL (2.3-4.5); POTASSIUM 3.5 MMOL/L (3.5-5.1); SODIUM 136 MMOL/L (135-145); TOTAL CARBON DIOXIDE 27.6 MMOL/L (24-32); TOTAL PROTEIN 6.7 G/DL (6.4-8.2); eGFR > 90 ML/MIN
--- NOTE | 2019-07-06 06:44 | NUR ---
Patient in room [facility] 360. I have received report from Davida ENG and had the opportunity to ask questions and assume patient care.
[2019-07-06] MEDS: docusate sod 100mg capsule PO SCH ×2 (07:23→19:14)
[2019-07-06] MEDS: piperacillin/tazo 3.375gm/50ml 50 ML IV SCH ×3 (07:23→23:40)
[2019-07-06 08:00] VITALS: BP 133/73
[2019-07-06] MEDS: enoxaparin 40mg/0.4ml syringe SUBCUT SCH (08:00)
[2019-07-06] MEDS: K and/or MAG REPLACEMENT MC SCH ×2 (08:00→20:00)
[2019-07-06] MEDS: insulin Lispro (HumaLOG) vial - multi-dose SQ SCH ×3 (09:04→19:13)
[2019-07-06 11:07] VITALS: BP 124/71
--- NOTE | 2019-07-06 17:00 | NUR ---
patient encouraged to ambulate. Reluctant most of shift, this pm encouraged again and walked 900ft with spouse. Drainage purrulent 20mls from right JOSE. Up to BR ad priscilla. Beaver 5mg given x2 for pain. Will continue to monitor.
[2019-07-06 18:00] VITALS: BP 132/82
--- NOTE | 2019-07-06 18:39 | NUR ---
Patient in room [facility] 360. I have received report from VELASQUEZ Llamas and had the opportunity to ask questions and assume patient care.
--- NOTE | 2019-07-06 18:53 | NUR ---
Problems reprioritized. Patient report given, questions answered & plan of care reviewed with Huy ENG.
[2019-07-06] MEDS: insulin glargine (Lantus) pen - multi-dose SQ SCH (22:50)
[2019-07-07] VITALS: BP 119/68
[2019-07-07 05:25] LABS: BASOPHILS % (AUTO) 0.4 % (0-1); EOSINOPHILS # (AUTO) 0.2 X10'3 (0-0.9); EOSINOPHILS % (AUTO) 3.3 % (0-6); HEMATOCRIT 32.7 % (35.0-45.0); HEMOGLOBIN 10.8 g/dl (12.0-16.0); LYMPHOCYTES # (AUTO) 2.2 X10'3 (1.1-4.8); LYMPHOCYTES % (AUTO) 29.8 % (21-51); MEAN CORPUSCULAR HEMOGLOBIN 26.1 PG (27.0-31.0); MEAN CORPUSCULAR HGB CONC 32.9 g/dL (33.0-36.5); MEAN CORPUSCULAR VOLUME 79.3 FL (78-98); MEAN PLATELET VOLUME 7.2 FL (7.4-10.4); MONOCYTES # (AUTO) 0.8 X10'3 (0-0.9); MONOCYTES % (AUTO) 10.5 % (2-12); NEUTROPHILS # (AUTO) 4.1 X10'3 (1.8-7.7); PLATELET COUNT 299 X10'3 (140-440); RED BLOOD COUNT 4.12 X10'6 (4.20-5.60); RED CELL DISTRIBUTION WIDTH 15.2 % (11.5-14.5); WHITE BLOOD COUNT 7.3 X10'3 (4.5-11.0)
[2019-07-07 05:50] LABS: ALANINE AMINOTRANSFERASE 17 U/L (12-78); ALBUMIN 2.4 G/DL (3.4-5.0); ALBUMIN/GLOBULIN RATIO 0.6 (1.1-1.5); ALKALINE PHOSPHATASE 97 IU/L (46-116); ANION GAP 6 (8-16); ASPARTATE AMINO TRANSFERASE 10 U/L (10-37); BILIRUBIN,TOTAL 0.3 MG/DL (0.1-1.0); BLOOD UREA NITROGEN 0 MG/DL (7-18); CALCIUM 8.5 MG/DL (8.5-10.1); CHLORIDE 104 MMOL/L (99-107); CREATININE 0.39 MG/DL (0.40-0.90); GLUCOSE 146 MG/DL (70-104); MAGNESIUM 1.5 MG/DL (1.5-2.4); PHOSPHORUS 4.5 MG/DL (2.3-4.5); POTASSIUM 3.4 MMOL/L (3.5-5.1); SODIUM 139 MMOL/L (135-145); TOTAL CARBON DIOXIDE 28.7 MMOL/L (24-32); TOTAL PROTEIN 6.6 G/DL (6.4-8.2); eGFR > 90 ML/MIN
[2019-07-07] MEDS: HYDROcodone/acetaminophen 5mg/325mg tablet PO PRN (06:30)
[2019-07-07] MEDS: normal saline 1000ml 1,000 ML IV SCH ×2 (06:31→16:47)
--- NOTE | 2019-07-07 06:36 | NUR ---
Problems reprioritized. Patient report given, questions answered & plan of care reviewed with VELASQUEZ Hector.
[2019-07-07] MEDS: docusate sod 100mg capsule PO SCH ×2 (06:45→19:17)
[2019-07-07] MEDS: potassium Cl 20 mEq SR tablet PO PRN ×2 (06:45→12:15)
[2019-07-07] MEDS: piperacillin/tazo 3.375gm/50ml 50 ML IV SCH ×3 (06:47→23:44)
[2019-07-07] MEDS: K and/or MAG REPLACEMENT MC SCH ×2 (06:49→20:00)
[2019-07-07] MEDS: enoxaparin 40mg/0.4ml syringe SUBCUT SCH ×3 (06:50→08:25)
[2019-07-07 08:00] VITALS: BP 138/80
[2019-07-07] MEDS: insulin Lispro (HumaLOG) vial - multi-dose SQ SCH ×3 (08:17→18:54)
[2019-07-07 11:00] VITALS: BP 146/88
[2019-07-07] MEDS ORDERED: potassium CL 10mEq/100ml bag 100 ML IV PRN (16:30)
[2019-07-07] MEDS ORDERED: magnesium 4gm in 100ml NS 100 ML IV PRN (16:30)
[2019-07-07] MEDS ORDERED: magnesium Cl slow-release 64mg tablet PO PRN (16:30)
[2019-07-07] MEDS ORDERED: magnesium 2GM in 50ml NS 50 ML IV PRN (16:30)
[2019-07-07] MEDS ORDERED: potassium Cl 20 mEq SR tablet PO PRN ×2 (16:30)
[2019-07-07] MEDS: acetaminophen 325mg tablet PO PRN (16:43)
--- NOTE | 2019-07-07 18:00 | NUR ---
Pt states she is feeling much better today. Went on 2 walks with a total of 9 laps. Nagging pain at drain site but tolerable with minimal pain med use today.
--- NOTE | 2019-07-07 18:21 | NUR ---
Problems reprioritized. Patient report given, questions answered & plan of care reviewed with Huy ENG.
--- NOTE | 2019-07-07 18:34 | NUR ---
Patient in room [facility] 360. I have received report from VELASQUEZ Hector and had the opportunity to ask questions and assume patient care.
[2019-07-07 20:00] VITALS: BP 125/71
[2019-07-07] MEDS: insulin glargine (Lantus) pen - multi-dose SQ SCH (21:31)
[2019-07-08 00:28] VITALS: BP 142/83
[2019-07-08] MEDS: acetaminophen 325mg tablet PO PRN (01:40)
[2019-07-08] MEDS: normal saline 1000ml 1,000 ML IV SCH (02:37)
--- NOTE | 2019-07-08 06:14 | NUR ---
Problems reprioritized. Patient report given, questions answered & plan of care reviewed with VELASQUEZ Jimenez.
[2019-07-08 06:27] LABS: BASOPHILS % (AUTO) 0.4 % (0-1); EOSINOPHILS # (AUTO) 0.2 X10'3 (0-0.9); EOSINOPHILS % (AUTO) 3.5 % (0-6); HEMATOCRIT 32.7 % (35.0-45.0); HEMOGLOBIN 10.8 g/dl (12.0-16.0); LYMPHOCYTES # (AUTO) 2.5 X10'3 (1.1-4.8); LYMPHOCYTES % (AUTO) 35.5 % (21-51); MEAN CORPUSCULAR HEMOGLOBIN 26.5 PG (27.0-31.0); MEAN CORPUSCULAR HGB CONC 33.1 g/dL (33.0-36.5); MEAN CORPUSCULAR VOLUME 79.9 FL (78-98); MEAN PLATELET VOLUME 7.3 FL (7.4-10.4); MONOCYTES # (AUTO) 0.7 X10'3 (0-0.9); NEUTROPHILS # (AUTO) 3.6 X10'3 (1.8-7.7); NEUTROPHILS % (AUTO) 50.6 % (42-75); PLATELET COUNT 303 X10'3 (140-440); RED BLOOD COUNT 4.09 X10'6 (4.20-5.60); RED CELL DISTRIBUTION WIDTH 15.2 % (11.5-14.5); WHITE BLOOD COUNT 7.1 X10'3 (4.5-11.0)
--- NOTE | 2019-07-08 06:35 | NUR ---
Patient in room [facility] 360. I have received report from VELASQUEZ SUNG and had the opportunity to ask questions and assume patient care.
[2019-07-08 06:38] LABS: ALANINE AMINOTRANSFERASE 18 U/L (12-78); ALBUMIN 2.6 G/DL (3.4-5.0); ALBUMIN/GLOBULIN RATIO 0.6 (1.1-1.5); ALKALINE PHOSPHATASE 104 IU/L (46-116); ANION GAP 5 (8-16); ASPARTATE AMINO TRANSFERASE 11 U/L (10-37); BILIRUBIN,TOTAL 0.2 MG/DL (0.1-1.0); BLOOD UREA NITROGEN 4 MG/DL (7-18); BUN/CREATININE RATIO 9.3 (6.6-38.0); CALCIUM 8.9 MG/DL (8.5-10.1); CHLORIDE 104 MMOL/L (99-107); CREATININE 0.43 MG/DL (0.40-0.90); GLUCOSE 177 MG/DL (70-104); MAGNESIUM 1.7 MG/DL (1.5-2.4); PHOSPHORUS 4.8 MG/DL (2.3-4.5); POTASSIUM 3.9 MMOL/L (3.5-5.1); SODIUM 138 MMOL/L (135-145); TOTAL CARBON DIOXIDE 29.4 MMOL/L (24-32); TOTAL PROTEIN 6.8 G/DL (6.4-8.2); eGFR > 90 ML/MIN
[2019-07-08 07:00] VITALS: BP 127/84
[2019-07-08] MEDS: K and/or MAG REPLACEMENT MC SCH (08:00)
[2019-07-08] MEDS: enoxaparin 40mg/0.4ml syringe SUBCUT SCH (09:54)
[2019-07-08] MEDS: piperacillin/tazo 3.375gm/50ml 50 ML IV SCH (09:55)
[2019-07-08] MEDS: docusate sod 100mg capsule PO SCH (09:55)
[2019-07-08] MEDS: insulin Lispro (HumaLOG) vial - multi-dose SQ SCH (10:03)
[2019-07-08 11:00] VITALS: BP 142/74
[2019-07-08] MEDS ORDERED: METR-159 PO (13:25)
[2019-07-08] MEDS ORDERED: LEVO750T21 PO (13:25)
--- NOTE | 2019-07-08 15:38 | NUR ---
PATIENT STABLE AND APPROPRIATE FOR DISCHARGE, IV TAKEN OUT EDUCATION GIVEN, PATIENT GIVEN SUPPLIES FOR JOSE IRRIGATION, ALL BELONGINGS SENT WITH PATIENT, PATIENT TAKEN TO LOBBY IN WHEELCHAIR TO AN AWAITING CAR WHERE FAMILY MEMBER WILL TAKE HER HOME
== END 2019-07-08 15:39 | disposition home or self-care (01) | DRG 721 ==
LOC: ER 10:10 → ED HOLD 12:52 → SUR 3N 13:58
PROVIDERS: ADMIT Family Medicine; ATTEND Family Medicine
PROC: 0W9G30Z Drainage of Peritoneal Cavity with Drainage Device, Percutaneous Approach (ICD-10-PCS; principal; 2019-07-04)
DX: T81.42XA Infection following a procedure, deep incisional surgical site, initial encounter (principal); K65.1 Peritoneal abscess; E87.1 Hypo-osmolality and hyponatremia; E11.9 Type 2 diabetes mellitus without complications; B95.4 Other streptococcus as the cause of diseases classified elsewhere; B96.20 Unspecified Escherichia coli [E. coli] as the cause of diseases classified elsewhere; E78.5 Hyperlipidemia, unspecified; Y83.8 Other surgical procedures as the cause of abnormal reaction of the patient, or of later complication, without mention of misadventure at the time of the procedure; Z90.49 Acquired absence of other specified parts of digestive tract; Z98.51 Tubal ligation status; Y92.89 Other specified places as the place of occurrence of the external cause
CPT/HCPCS: 36415; 49406; 74177; 80053; 81001; 81025; 82948; 83036; 83605; 83690; 83735; 84100; 84145; 85025; 87040; 87070; 87077; 87081; 87186; 99285; G0378; J1170; J1650; J1815; J2405; J2543; J2765; J3010; J7030; Q9963; Q9967

== ENCOUNTER 2019-07-16 15:57 | Emergency (ER) | payer MEDICAID ==
[~2019-07-16] VITALS: Ht 167.6 cm; Wt 83.0 kg
[~2019-07-16 15:57] MED LIST changes: +LEVO750T21 PO; +METR-159 PO; -OXYC-145 PO
[2019-07-16] MEDS ORDERED: HYDR-3965 PO (20:06)
[2019-07-16] MEDS ORDERED: HYDROcodone/acetaminophen 5mg/325mg tablet PO ONE (20:10)
--- NOTE | 2019-07-16 20:15 | NUR ---
RIGHT QUADRANT DRAIN TO JOSE BULB SXN. PATIENT HERE FOR ABDOMINAL PAIN AND DRESSING CHANGE DUE TO BLISTER FORMATION. UNABLE TO OBTAIN STATLOCK FOR 10-12 FR DRAIN. DRAIN SITE REDDENED WITH CREAMY MODERATE OOZE. 2 QUARTER SIZED BLISTERS UNDER STATLOCK THAT WERE BLEEDING SEROSANGUINOUS FLUID. SITE CLEANED WITH STERILE NS. BLOOD REMOVED FROM UNDER STATLOCK WITH CLORAPREP. STAYFIX APPLIED. ANTIBIOTIC OINTMENT TO OPEN BLISTER AREAS. NON ADHERENT OVER OINTMENT ON BLISTER AREAS. TEGADERM ON TOP. FLUSHED DRAIN PER PA WITH TEN ML STERILE NS WITH RETURN OF YELLOWISH FLUID WITH COPIOUS SEDIMENT. NEW LIGHT BLUE CAP TO DRAIN PORT
[2019-07-16 20:49] VITALS: BP 142/80
== END 2019-07-16 20:15 | disposition home or self-care (01) ==
LOC: ER 15:57
DX: S30.821A Blister (nonthermal) of abdominal wall, initial encounter (principal); E11.9 Type 2 diabetes mellitus without complications; Z90.49 Acquired absence of other specified parts of digestive tract; Z98.51 Tubal ligation status; Z79.899 Other long term (current) drug therapy; Z99.2 Dependence on renal dialysis; X58.XXXA Exposure to other specified factors, initial encounter; Y93.89 Activity, other specified; Y92.89 Other specified places as the place of occurrence of the external cause; Y99.9 Unspecified external cause status
CPT/HCPCS: 82948; 99283

== ENCOUNTER 2019-07-22 12:52 | Day surgery (SDC) | payer MEDICAID ==
[~2019-07-22] VITALS: Ht 167.6 cm; Wt 81.0 kg
[~2019-07-22 12:52] MED LIST changes: +HYDR-3965 PO; -LEVO750T21 PO
[2019-07-22 13:35] VITALS: BP 125/72
[2019-07-22] MEDS ORDERED: HYDR-4383 PO (14:12)
[2019-07-22] MEDS ORDERED: METR500T PO (14:12)
[2019-07-22 14:15] LABS: BASOPHILS # (AUTO) 0.1 X10'3 (0-0.2); BASOPHILS % (AUTO) 0.6 % (0-1); EOSINOPHILS # (AUTO) 0.2 X10'3 (0-0.9); EOSINOPHILS % (AUTO) 2.7 % (0-6); HEMATOCRIT 38.2 % (35.0-45.0); HEMOGLOBIN 12.5 g/dl (12.0-16.0); LYMPHOCYTES # (AUTO) 3.8 X10'3 (1.1-4.8); LYMPHOCYTES % (AUTO) 43.1 % (21-51); MEAN CORPUSCULAR HEMOGLOBIN 25.9 PG (27.0-31.0); MEAN CORPUSCULAR HGB CONC 32.8 g/dL (33.0-36.5); MEAN CORPUSCULAR VOLUME 79.2 FL (78-98); MEAN PLATELET VOLUME 7.7 FL (7.4-10.4); MONOCYTES # (AUTO) 0.7 X10'3 (0-0.9); NEUTROPHILS % (AUTO) 45.6 % (42-75); PLATELET COUNT 390 X10'3 (140-440); RED BLOOD COUNT 4.83 X10'6 (4.20-5.60); RED CELL DISTRIBUTION WIDTH 15.5 % (11.5-14.5); WHITE BLOOD COUNT 8.7 X10'3 (4.5-11.0)
[2019-07-22 14:20] VITALS: BP 139/71
[2019-07-22] MEDS ORDERED: iohexol 300 MG/1 ML 50ml polymer ONE (14:27)
[2019-07-22 14:30] VITALS: BP 138/76
[2019-07-22 14:30] LABS: ALBUMIN 3.6 G/DL (3.4-5.0); ANION GAP 12 (8-16); BLOOD UREA NITROGEN 10 MG/DL (7-18); BUN/CREATININE RATIO 22.2 (6.6-38.0); CALCIUM 8.9 MG/DL (8.5-10.1); CHLORIDE 101 MMOL/L (99-107); CREATININE 0.45 MG/DL (0.40-0.90); GLUCOSE 288 MG/DL (70-104); PARTIAL THROMBOPLASTIN TIME 25 SECONDS (22-32); POTASSIUM 3.7 MMOL/L (3.5-5.1); SODIUM 138 MMOL/L (135-145); TOTAL CARBON DIOXIDE 25.3 MMOL/L (24-32); eGFR > 90 ML/MIN
[2019-07-22 14:45] VITALS: BP 140/74
[2019-07-22] MEDS ORDERED: acetaminophen 325mg tablet PO PRN (15:05)
[2019-07-22 15:45] VITALS: BP 136/76
== END 2019-07-22 16:00 | disposition home or self-care (01) ==
LOC: SSTAY O 12:52
PROVIDERS: ATTEND Radiology Vascular & Interventional Radiology
DX: Z48.03 Encounter for change or removal of drains (principal); K65.1 Peritoneal abscess; Z98.890 Other specified postprocedural states; E11.9 Type 2 diabetes mellitus without complications; E78.5 Hyperlipidemia, unspecified
CPT/HCPCS: 36415; 74160; 80048; 82948; 85025; 85610; 85730; Q9967

== ENCOUNTER 2019-07-31 11:01 | Day surgery (SDC) | payer MEDICAID ==
[~2019-07-31] VITALS: Ht 167.6 cm; Wt 83.5 kg
[~2019-07-31 11:01] MED LIST changes: -HYDR-3965 PO; +HYDR-4383 PO; -METR-159 PO; +METR500T PO
[2019-07-31] MEDS ORDERED: normal saline 1000ml 1,000 ML IV PRN (11:20)
[2019-07-31 11:40] VITALS: BP 125/71
[2019-07-31 11:52] LABS: BASOPHILS # (AUTO) 0.1 X10'3 (0-0.2); BASOPHILS % (AUTO) 0.6 % (0-1); EOSINOPHILS # (AUTO) 0.3 X10'3 (0-0.9); HEMOGLOBIN 13.2 g/dl (12.0-16.0); LYMPHOCYTES # (AUTO) 3.7 X10'3 (1.1-4.8); LYMPHOCYTES % (AUTO) 42.9 % (21-51); MEAN CORPUSCULAR HEMOGLOBIN 25.9 PG (27.0-31.0); MEAN CORPUSCULAR HGB CONC 33.1 g/dL (33.0-36.5); MEAN CORPUSCULAR VOLUME 78.2 FL (78-98); MEAN PLATELET VOLUME 7.8 FL (7.4-10.4); MONOCYTES # (AUTO) 0.6 X10'3 (0-0.9); MONOCYTES % (AUTO) 6.5 % (2-12); NEUTROPHILS # (AUTO) 4.1 X10'3 (1.8-7.7); PLATELET COUNT 323 X10'3 (140-440); RED BLOOD COUNT 5.12 X10'6 (4.20-5.60); RED CELL DISTRIBUTION WIDTH 15.8 % (11.5-14.5); WHITE BLOOD COUNT 8.7 X10'3 (4.5-11.0)
[2019-07-31 12:04] LABS: ALANINE AMINOTRANSFERASE 58 U/L (12-78); ALBUMIN 4.2 G/DL (3.4-5.0); ALBUMIN/GLOBULIN RATIO 0.9 (1.1-1.5); ALKALINE PHOSPHATASE 158 IU/L (46-116); ANION GAP 10 (8-16); ASPARTATE AMINO TRANSFERASE 40 U/L (10-37); BILIRUBIN,TOTAL 0.5 MG/DL (0.1-1.0); BLOOD UREA NITROGEN 7 MG/DL (7-18); BUN/CREATININE RATIO 15.9 (6.6-38.0); CALCIUM 8.9 MG/DL (8.5-10.1); CHLORIDE 100 MMOL/L (99-107); CREATININE 0.44 MG/DL (0.40-0.90); GLUCOSE 234 MG/DL (70-104); POTASSIUM 3.5 MMOL/L (3.5-5.1); SODIUM 136 MMOL/L (135-145); TOTAL CARBON DIOXIDE 26.1 MMOL/L (24-32); TOTAL PROTEIN 8.7 G/DL (6.4-8.2); eGFR > 90 ML/MIN
[2019-07-31] MEDS ORDERED: IBUP200C5 PO (12:09)
[2019-07-31 12:35] LABS: PARTIAL THROMBOPLASTIN TIME 25 SECONDS (22-32)
[2019-07-31] MEDS ORDERED: iohexol 300 MG/1 ML 50ml polymer ONE (13:35)
[2019-07-31] MEDS ORDERED: fentaNYL/PF 50MCG/1 ML 2ML syringe ONE (13:54)
[2019-07-31 14:11] VITALS: BP 125/64
[2019-07-31 14:15] VITALS: BP 142/89
[2019-07-31 14:26] VITALS: BP 143/100
[2019-07-31 14:45] VITALS: BP 145/90
== END 2019-07-31 14:50 | disposition home or self-care (01) ==
LOC: SSTAY O 11:01
PROVIDERS: ATTEND Radiology Vascular & Interventional Radiology
DX: K65.1 Peritoneal abscess (principal); Z79.01 Long term (current) use of anticoagulants
CPT/HCPCS: 36415; 49424; 76080; 80053; 85025; 85610; 85730; J3010; J7030; Q9967

== ENCOUNTER 2021-04-07 07:37 | Inpatient (IN) | payer MEDICAID ==
[2021-03-31 12:30] LABS: BASOPHILS % (AUTO) 0.4 % (0-1); EOSINOPHILS # (AUTO) 0.1 X10'3 (0-0.9); EOSINOPHILS % (AUTO) 1.5 % (0-6); LYMPHOCYTES % (AUTO) 34.4 % (21-51); MEAN CORPUSCULAR HEMOGLOBIN 22.3 PG (27.0-31.0); MEAN CORPUSCULAR HGB CONC 31.1 g/dL (33.0-36.5); MEAN CORPUSCULAR VOLUME 71.7 FL (78-98); MEAN PLATELET VOLUME 7.6 FL (7.4-10.4); MONOCYTES # (AUTO) 0.5 X10'3 (0-0.9); NEUTROPHILS # (AUTO) 5.1 X10'3 (1.8-7.7); NEUTROPHILS % (AUTO) 57.7 % (42-75); PRE OP HEMATOCRIT 35.9 % (35.0-45.0); PRE OP HEMOGLOBIN 11.2 g/dL (12.0-16.0); PRE OP PLATELET COUNT 347 X10'3 (140-440); RED CELL DISTRIBUTION WIDTH 18.7 % (11.5-14.5)
[2021-03-31 12:45] LABS: CLARITY,URINE SLIGHTLY CLOUDY (Clear); COLOR,URINE YELLOW (Yellow); GLUCOSE, URINE NEGATIVE (Neg); KETONES,URINE NEGATIVE (Neg); LEUKOCYTE ESTERASE ,URINE NEGATIVE (Neg); NITRITES, URINE NEGATIVE (Neg); OCCULT BLOOD,URINE NEGATIVE (Neg); PH,URINE 5.5 (4.8-8.0); PROTEIN,URINE NEGATIVE (Neg); UROBILINOGEN,URINE 0.2 E.U/dL (0.2-1.0)
[2021-03-31 12:55] LABS: ALBUMIN 3.6 G/DL (3.4-5.0); ALBUMIN/GLOBULIN RATIO 0.8 (1.1-1.5); ALKALINE PHOSPHATASE 127 IU/L (46-116); BLOOD UREA NITROGEN 5 MG/DL (7-18); BUN/CREATININE RATIO 9.6 (6.6-38.0); CALCIUM 8.3 MG/DL (8.5-10.1); CHLORIDE 106 MMOL/L (99-107); CREATININE 0.52 MG/DL (0.40-0.90); PRE OP ALT 56 U/L (30-65); PRE OP ANION GAP 8 (8-16); PRE OP AST 33 U/L (10-37); PRE OP BILIRUB, TOTAL 0.3 MG/DL (0.0-1.0); PRE OP GLUCOSE 169 MG/DL (70-104); PRE OP POTASSIUM 3.7 MMOL/L (3.4-5.1); PRE OP SODIUM 140 MMOL/L (135-145); TOTAL CARBON DIOXIDE 25.6 MMOL/L (24-32); TOTAL PROTEIN 7.9 G/DL (6.4-8.2); eGFR > 90 ML/MIN
[2021-03-31 13:00] LABS: UA COLLECTION TYPE CLN CATCH MIDSTREAM
[2021-03-31 13:20] LABS: MUCUS STRANDS MODERATE /LPF (Neg); SQUAMOUS EPITHELIAL CELL,UR MANY /LPF (FEW)
[2021-03-31 13:21] LABS: BACTERIA,URINE 2+ /HPF (Neg); RBC,URINE 0-2 /HPF (0-2); WBC,URINE 0-4 /HPF (0-4); YEAST FEW /HPF (NEGATIVE)
[2021-03-31 14:03] LABS: ANISOCYTOSIS 2+; GIANT PLATELET FEW; LARGE PLATELETS FEW; MICROCYTOSIS 1+; PLATELET ESTIMATE NORMAL
[2021-04-05 14:45] VITALS: BP 156/76
[~2021-04-07] VITALS: Ht 167.6 cm; Wt 89.4 kg
[2021-04-07] VITALS (19 sets, daily range): BP systolic 135–176; BP diastolic 50–88
[~2021-04-07 07:37] MED LIST changes: +FERR324T PO; -HYDR-4383 PO; +INSU100C10 SQ; +LIRA0.6P2 SUBCUT; +METF-900 PO; -METF500T20 PO; -METR500T PO; +ceFOXitin 2GM-NS 100mL ADDvant 100 ML IV ONE; +famotidine 20mg tablet PO ONE; +ringers solution, lacted 1,000 ML IV SCH
[2021-04-07] MEDS ORDERED: epiNEPHrine 1 mg/ml inj ONE (07:48)
[2021-04-07] MEDS ORDERED: vasoPRESSIN 20 units/ml inj. ONE (07:49)
[2021-04-07] MEDS ORDERED: neomy sulf/polymyxin B sulf. GU irrigation 1ml amp IR ONE (07:49)
[2021-04-07] MEDS ORDERED: midazolam 1 mg/ML 2ml injection ONE (09:44)
[2021-04-07] MEDS ORDERED: sevoflurane 250ml liquid IH ONE (09:44)
[2021-04-07] MEDS ORDERED: phenylephrine 10mg/ml inj. ONE (09:44)
[2021-04-07] MEDS ORDERED: fentaNYL /PF 50mcg/ml 5ml ampule ONE (09:44)
[2021-04-07] MEDS ORDERED: rocuronium 10mg/ml inj IV ONE ×2 (09:44→09:45)
[2021-04-07] MEDS ORDERED: LIDOcaine 2% (20mg/ml) 5ml vial ONE (09:45)
[2021-04-07] MEDS ORDERED: propofol inj 20 ML IV ONE (09:45)
[2021-04-07] MEDS ORDERED: insulin regular, human U-100 3ml vial - multi-dose ONE (09:59)
[2021-04-07] MEDS: BUPIVAcaine/PF 2.5mg/ml (0.25%) 10ml vial ONE ×2 (10:56→10:57)
[2021-04-07] MEDS ORDERED: meperidine/PF 25mg/ml syringe IV PRN ×3 (11:55)
[2021-04-07] MEDS ORDERED: morphine 2 MG/ML inj. syringe IV PRN (11:55)
[2021-04-07] MEDS ORDERED: morphine 4 MG/ML inj SYRINge IV PRN (11:55)
[2021-04-07] MEDS ORDERED: proCHLORperazine 10 MG/2 ml inj IV PRN (11:55)
[2021-04-07] MEDS ORDERED: ondansetron/PF 4mg/2ml inj IV PRN ×2 (11:55→12:45)
[2021-04-07] MEDS ORDERED: ringers solution, lacted 1,000 ML IV SCH (11:55)
[2021-04-07] MEDS ORDERED: albuterol 60 PUFF/8GM Inhaler IH ONE (12:02)
[2021-04-07] MEDS ORDERED: albumin (Human) 5% 250ml 250 ML IV ONE (12:02)
[2021-04-07] MEDS ORDERED: acetaminophen 1,000mg/100ml IV 100 ML IV ONE (12:07)
[2021-04-07] MEDS ORDERED: glycopyrrolate 0.2mg/ml inj ONE (12:07)
[2021-04-07] MEDS ORDERED: ondansetron/PF 4mg/2ml inj ONE (12:07)
[2021-04-07] MEDS ORDERED: sugammadex 200mg/2ml injection IV ONE (12:07)
[2021-04-07] MEDS ORDERED: metoclopramide 5 mg/ml inj IV PRN (12:45)
[2021-04-07] MEDS ORDERED: temazepam 15mg capsule PO PRN (12:45)
[2021-04-07] MEDS ORDERED: diphenhydrAMINE 50 mg/ml inj IV PRN (12:45)
[2021-04-07] MEDS ORDERED: estradiol 0.1mg patch.TDWK TD SCH (12:45)
[2021-04-07] MEDS ORDERED: LORazepam 2 mg/ml vial IV PRN (12:45)
[2021-04-07] MEDS ORDERED: magnesium hydroxide 30ml (MOM) UD suspension PO PRN (12:45)
[2021-04-07] MEDS ORDERED: normal saline 500ml IV soln 500 ML IV PRN (12:45)
[2021-04-07] MEDS ORDERED: HYDROcodone/acetaminophen 10/325mg tab PO PRN ×2 (12:45)
[2021-04-07] MEDS ORDERED: LORazepam 1 MG tablet PO PRN (12:45)
--- NOTE | 2021-04-07 12:55 | NUR ---
ADMITTED TO PACU FROM OR ACCOMPANIED BY ANESTHESIA. INTIAL PHYSICAL ASSESSMENT DONE AND RECORDED. REPORT RECEIVED FROM ANESTHESIA.
--- NOTE | 2021-04-07 14:15 | NUR ---
PACU DISCHARGE CRITERIA MET, REPORT GIVEN TO FLOOR. DENIES PAIN OR DISCOMFORT. PT IS STABLE AND ADEQUATELY RECOVERED FROM ANESTHESIA. PT HAS STABLE AIRWAY PATENCY, RESPIRATORY FUNCTION TO INCLUDE RESPIRATORY RATE AND O2 SAT. HEART RATE, BLOOD PRESSURE STABLE AND HYDRATION ADEQUATE. MENTAL STATUS IS APPROPRIATE. PAIN AND NAUSEA CONTROLLED. REFER TO PACU SPREADSHEET FOR VITAL SIGNS.
[2021-04-07 14:24] LABS: ANION GAP 10 (8-16); BLOOD UREA NITROGEN 5 MG/DL (7-18); BUN/CREATININE RATIO 7.9 (6.6-38.0); CALCIUM 7.3 MG/DL (8.5-10.1); CHLORIDE 108 MMOL/L (99-107); CREATININE 0.63 MG/DL (0.40-0.90); GLUCOSE 236 MG/DL (70-104); SODIUM 142 MMOL/L (135-145); TOTAL CARBON DIOXIDE 23.9 MMOL/L (24-32); eGFR > 90 ML/MIN
[2021-04-07] MEDS ORDERED: MESSAGE TO PHARMACY PO ONE (14:30)
[2021-04-07] MEDS ORDERED: dextrose ORAL solution 15 GM/59 ML bottle PO PRN ×2 (14:30)
[2021-04-07] MEDS ORDERED: dextrose 50%-water 50ml dispensing syringe IV PRN ×2 (14:30)
[2021-04-07] MEDS ORDERED: glucagon, human recombinant 1mg kit SUBCUT PRN (14:30)
--- NOTE | 2021-04-07 14:42 | NUR ---
Patient arrived to floor. VSS. at bedside
[2021-04-07] MEDS: ringers solution, lacted 1,000 ML IV SCH ×2 (14:44→19:24)
[2021-04-07 15:38] LABS: BASOPHILS % (AUTO) 0.1 % (0-1); EOSINOPHILS % (AUTO) 0 % (0-6); HEMATOCRIT 30.5 % (35.0-45.0); HEMOGLOBIN 9.5 g/dl (12.0-16.0); LYMPHOCYTES # (AUTO) 0.9 X10'3 (1.1-4.8); LYMPHOCYTES % (AUTO) 5.2 % (21-51); MEAN CORPUSCULAR HEMOGLOBIN 23.4 PG (27.0-31.0); MEAN CORPUSCULAR HGB CONC 31.3 g/dL (33.0-36.5); MEAN CORPUSCULAR VOLUME 74.7 FL (78-98); MEAN PLATELET VOLUME 7.3 FL (7.4-10.4); MONOCYTES # (AUTO) 0.6 X10'3 (0-0.9); MONOCYTES % (AUTO) 3.4 % (2-12); NEUTROPHILS # (AUTO) 15.9 X10'3 (1.8-7.7); NEUTROPHILS % (AUTO) 91.3 % (42-75); PLATELET COUNT 329 X10'3 (140-440); RED BLOOD COUNT 4.08 X10'6 (4.20-5.60); RED CELL DISTRIBUTION WIDTH 20.8 % (11.5-14.5); WHITE BLOOD COUNT 17.4 X10'3 (4.5-11.0)
[2021-04-07] MEDS: ketorolac trometh. 30mg/ml inj. IV PRN (16:20)
[2021-04-07] MEDS: ceFAZolin 1GM/D5W- ADD-VANTAGE 50 ML IV SCH (16:20)
[2021-04-07 16:34] LABS: ANISOCYTOSIS 3+; MICROCYTOSIS 1+; PLATELET ESTIMATE NORMAL
[2021-04-07 16:35] LABS: HYPOCHROMASIA 1+
--- NOTE | 2021-04-07 17:20 | NUR ---
Patient c/o feeling pressure in vaginal area. Pritchett catheter is putting out clear yellow urine. Bladder scanner showed 0mL's in bladder. Patient was given Toradol which helped ease her pain/pressure feeling. Will continue to monitor.
--- NOTE | 2021-04-07 18:09 | NUR ---
Problems reprioritized. Patient report given, questions answered & plan of care reviewed with VELASQUEZ Veras.
--- NOTE | 2021-04-07 18:30 | NUR ---
Patient in room [facility] 357. I have received report from MARTA ENG and had the opportunity to ask questions and assume patient care.
[2021-04-07] MEDS: insulin Lispro (HumaLOG) vial - multi-dose SQ SCH (19:57)
[2021-04-07] MEDS: docusate sod 100mg capsule PO SCH (19:58)
[2021-04-07] MEDS ORDERED: insulin glargine (Lantus) pen - multi-dose SQ SCH (21:00)
[2021-04-08] VITALS: BP 148/77
[2021-04-08] MEDS: ceFAZolin 1GM/D5W- ADD-VANTAGE 50 ML IV SCH ×2 (00:43→08:21)
[2021-04-08] MEDS: ringers solution, lacted 1,000 ML IV SCH (04:24)
[2021-04-08 06:30] LABS: BASOPHILS % (AUTO) 0.3 % (0-1); EOSINOPHILS # (AUTO) 0.1 X10'3 (0-0.9); HEMATOCRIT 27.7 % (35.0-45.0); HEMOGLOBIN 8.9 g/dl (12.0-16.0); LYMPHOCYTES # (AUTO) 3.4 X10'3 (1.1-4.8); LYMPHOCYTES % (AUTO) 33.8 % (21-51); MEAN CORPUSCULAR HEMOGLOBIN 23.9 PG (27.0-31.0); MEAN CORPUSCULAR VOLUME 74.8 FL (78-98); MEAN PLATELET VOLUME 7.4 FL (7.4-10.4); MONOCYTES # (AUTO) 0.8 X10'3 (0-0.9); MONOCYTES % (AUTO) 8.3 % (2-12); NEUTROPHILS # (AUTO) 5.6 X10'3 (1.8-7.7); NEUTROPHILS % (AUTO) 56.6 % (42-75); PLATELET COUNT 308 X10'3 (140-440); RED CELL DISTRIBUTION WIDTH 20.1 % (11.5-14.5)
--- NOTE | 2021-04-08 06:30 | NUR ---
Problems reprioritized. Patient report given, questions answered & plan of care reviewed with COLE ENG.
[2021-04-08 06:39] LABS: ALBUMIN 2.9 G/DL (3.4-5.0); ANION GAP 7 (8-16); BLOOD UREA NITROGEN 4 MG/DL (7-18); BUN/CREATININE RATIO 8.3 (6.6-38.0); CHLORIDE 106 MMOL/L (99-107); CREATININE 0.48 MG/DL (0.40-0.90); GLUCOSE 159 MG/DL (70-104); POTASSIUM 3.6 MMOL/L (3.5-5.1); SODIUM 140 MMOL/L (135-145); TOTAL CARBON DIOXIDE 26.7 MMOL/L (24-32); eGFR > 90 ML/MIN
--- NOTE | 2021-04-08 06:45 | NUR ---
Patient in room [facility] 357B. I have received report from ANDREW MORALES RN and had the opportunity to ask questions and assume patient care.
[2021-04-08 07:00] VITALS: BP 165/80
[2021-04-08] MEDS ORDERED: enoxaparin 40mg/0.4ml syringe SQ SCH (08:00)
[2021-04-08] MEDS: docusate sod 100mg capsule PO SCH (08:21)
[2021-04-08] MEDS: ketorolac trometh. 30mg/ml inj. IV PRN (08:27)
[2021-04-08] MEDS: insulin Lispro (HumaLOG) vial - multi-dose SQ SCH (10:02)
[2021-04-08 12:00] VITALS: BP 146/79
--- NOTE | 2021-04-08 16:40 | NUR ---
PATIENT STABLE AND APPROPRIATE FOR DISCHARGE, IV REMOVED, EDUCATION GIVEN, NEW MEDS E-SCRIPTED TO PREFERRED PHARMACY, ALL BELONGINGS SENT WITH PATIENT, PATIENT TAKEN TO LOBBY BY WHEELCHAIR TO AN AWAITING CAR WHERE WILL TAKE PATIENT HOME
== END 2021-04-08 16:40 | disposition home or self-care (01) | DRG 519 ==
LOC: PAS IN 07:37 → SUR 3N 12:47
PROVIDERS: ADMIT Obstetrics & Gynecology Obstetrics; ATTEND Obstetrics & Gynecology Obstetrics
PROC: 0UT2FZZ Resection of Bilateral Ovaries, Via Natural or Artificial Opening With Percutaneous Endoscopic Assistance (ICD-10-PCS; 2021-04-07)
PROC: 0UT7FZZ Resection of Bilateral Fallopian Tubes, Via Natural or Artificial Opening With Percutaneous Endoscopic Assistance (ICD-10-PCS; 2021-04-07)
PROC: 30233N1 Transfusion of Nonautologous Red Blood Cells into Peripheral Vein, Percutaneous Approach (ICD-10-PCS; 2021-04-07)
PROC: 0UT9FZZ Resection of Uterus, Via Natural or Artificial Opening With Percutaneous Endoscopic Assistance (ICD-10-PCS; principal; 2021-04-07 09:44)
DX: D25.9 Leiomyoma of uterus, unspecified (principal); K66.1 Hemoperitoneum; N92.1 Excessive and frequent menstruation with irregular cycle; E11.9 Type 2 diabetes mellitus without complications; G89.29 Other chronic pain; R58 Hemorrhage, not elsewhere classified; Z79.4 Long term (current) use of insulin; Z98.51 Tubal ligation status
CPT/HCPCS: 36415; 36430; 71046; 80048; 80053; 81001; 82948; 83036; 85008; 85025; 86885; 86900; 86901; 86920; 93005; A4314; A4618; A7000; C9399; G0378; J0131; J0171; J0690; J0694; J1650; J1815; J1885; J2001; J2175; J2250; J2370; J2405; J2704; J3010; J3490; J7120; P9016; P9045; U0003; U0005

== ENCOUNTER 2023-06-17 18:56 | Emergency (ER) | payer MEDICAID ==
[~2023-06-17] VITALS: Ht 167.6 cm; Wt 72.7 kg
[~2023-06-17 18:56] MED LIST changes: -ceFOXitin 2GM-NS 100mL ADDvant 100 ML IV ONE; -famotidine 20mg tablet PO ONE; -ringers solution, lacted 1,000 ML IV SCH
[2023-06-17 18:58] VITALS: BP 131/94; PULSE 102; TEMP 97; O2SAT 98
[2023-06-17] MEDS ORDERED: ondansetron/PF 4mg/2ml inj IV ONE (19:15)
[2023-06-17] MEDS ORDERED: morphine 4 MG/ML inj SYRINge IV ONE (19:15)
[2023-06-17 19:18] VITALS: RESP 20
[2023-06-17] MEDS ORDERED: NAPR-56 PO (20:30)
== END 2023-06-17 20:46 | disposition home or self-care (01) ==
LOC: ER 18:57
DX: S62.325A Displaced fracture of shaft of fourth metacarpal bone, left hand, initial encounter for closed fracture (principal); W19.XXXA Unspecified fall, initial encounter; Y93.89 Activity, other specified; Y92.89 Other specified places as the place of occurrence of the external cause; Y99.8 Other external cause status
CPT/HCPCS: 29125; 73110; 73630; 96374; 96375; 99284; J2270; J2405; A6446; A6449